=== PATIENT | male | born 1935 | race Caucasian/White ===

== ENCOUNTER 2016-12-27 15:38 | Observation (INO) | payer MEDICARE, OTHER ==
[~2016-12-27] VITALS: Ht 182.9 cm; Wt 92.1 kg
[2016-12-27 15:55] VITALS: BP 145/85; PULSE 80; RESP 15; O2SAT 96
[2016-12-27 16:35] LABS: BASOPHILS % (AUTO) 0.5 % (0-3); EOSINOPHILS % (AUTO) 3.9 % (0-5); MONOCYTES % (AUTO) 10.9 % (4-12); Mean Corpuscular Hemoglobin 29.2 pg (27.0-35.0); Mean Corpuscular Volume 86.3 fL (81-100); NEUTROPHILS % (AUTO) 60.7 % (40-74); Platelet Count 158 bil/L (150-400)
--- NOTE | 2016-12-27 16:53 | ED.REPORT ---
HPI-Neurologic Deficit Date of Service December 27, 2016 ED Provider: Franck Alfaro MD The pt is an 81 y/o male with a history of mild dementia presenting to the ED complaining of a feeling of confusion onset 1400 today. [facility] because he was feeling "fuzzy headed" and being unable to remember street names. He has never felt like this before. Per the pt's , he has been acting "odd" lately as well as there being a decrease in his ability to read. When his arrives later, she states that yesterday he had an episode where he tried to insert his credit card into the money slot which is not usual. She did say that he was normal this morning though. He is also complaining of R leg weakness for the last couple of days. Pt denies abd pain, nausea, vomiting and fever. Nursing Notes Stated Complaint: LIGHT HEADED, PAIN IN LEGS Chief Complaint: Neuro Symptoms/ Deficits Nursing Notes Reviewed: Yes Allergies: Coded Allergies: No Known Allergies (Unverified , 12/27/16) Scheduled Levothyroxine (Levothyroxine) 25 Mcg Tablet 25 MCG PO DAILY Pantoprazole DR (Pantoprazole DR) 40 Mg Tablet.dr 40 MG PO DAILY Sertraline HCl (Sertraline) 50 Mg Tablet 50 MG PO DAILY Simvastatin (Simvastatin) 40 Mg Tablet 40 MG PO HS General Time Seen by Provider: 16:40 Chief Complaint Other (confusion) Hx Obtained From: Patient Arrived By: Walk-in Sudden in Onset?: Yes Onset Occurred: 1 - 4 hours ago Symptom Duration: Since onset Severity: Current: No pain currently Associated with: Denies: Fever, Vomiting Recent Healthcare: No recent doctor visit, No recent hospitalization Similar Sx Previous: No Risk Factors TPA Administration/Criteria Stroke Thrombolytic Therapy : TPA Considered: No TPA Administered Intravenously: No, exclusion criteria (Unknown time of onset) NIH Stroke Scale Level of Consciousness: Alert and responsive (0) Ask Month & Age: Both questions right (0) 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 (0) Horizontal EO Movements: None (0) Visual Duenas: Partial hemianopsia (1) Facial Palsy: Normal symmetry (0) Right Arm Motor Drift (10s): No drift 10 sec (0) Left Arm Motor Drift (10s): No drift 10 sec (0) Right Leg Motor Drift (5s): No drift 5 sec (0) Left Leg Motor Drift (5s): No drift 5 sec (0) Limb Ataxia FNF/Heel-Storey: Ataxia in 1 limb (1) (R arm) Sensation (Arms/Legs/Face): Pinprick less sharp (1) (Face, arm, and leg ) Language Aphasia: Loss fluency ID matls (1) Dysarthria: Slurring intelligible (1) NIHSS Score: 5 Time NIHSS Performed: 16:47 Date NIHSS Performed: December 27, 2016 Past Medical History Past Medical History Renal cell carcinoma Prostate cancer Past Surgical History L knee replacement Left nephrectomy Radical prostatectomy Hernia repair Smoking History Never Smoker Social History Alcohol Use: "Social" Other Social History: Ambulatory Status Independent Review of Systems RLE weakness Constitutional: Denies: Fever Respiratory: Denies: Non-productive cough GI: Denies: Abdominal pain, Nausea, Vomiting Neurologic: Reports: Confusion Complete sys rev & neg: except as marked. Physical Exam Initial Vital Signs Vital Signs (First) Date Time Temp Pulse Resp B/P Pulse Ox O2 Delivery O2 Flow Rate FiO2 12/27/16 15:55 36.6 80 15 145/85 96 Room Air Initial VS: Reviewed ENT: Conjunctiva normal, No scleral icterus Neck: Supple, Full range of motion Abdomen / GI: Soft, Non-tender, No guarding, No rebound, No distention Extremities: Vascular intact, Neuro intact, No swelling, No tenderness Skin: Warm, Dry, No cyanosis Psychiatric: Mood/affect normal, Behavior normal, Normal thought content General/Constitutional: Awake, Alert Head / Eyes: Atraumatic, Normocephalic, PERRL Respiratory / Chest: Breath sounds NL, Breath sounds = bilat, No respiratory distress, No rales, No rhonchi, No wheezing Cardiovascular: Heart rate NL, Regular rhythm, Heart sounds NL Neurologic: Oriented X3 See NIH ENT: Atraumatic, Airway patent Neck: Atraumatic, Supple, Full range of motion Back: Atraumatic, Full range of motion Skin: Color NL, Warm, Dry Interpretation & Diagnostics Interpretation & Diagnostics: PROCEDURE: CT ANGIO HEAD AND NECK (P) IMPRESSION: 1. No acute intracranial process. 2. Moderate atrophy and chronic microvascular ischemic changes. 3. No areas of hemodynamically significant stenosis, vascular occlusion or aneurysmal dilation within the anterior circulation. 4. No areas of hemodynamically significant stenosis, vascular occlusion or aneurysmal dilation within the posterior circulation. 5. No areas of hemodynamically significant stenosis, vascular occlusion or aneurysmal dilation within the neck vasculature. Dictated by: Caity Zafar M.D. on 12/27/2016 at 21:22 Approved by: Caity Zafar M.D. on 12/27/2016 at 21:27 Lab Results Interpretation Result Diagram: 12/27/16 1627 12/27/16 1627 Test 12/27/16 16:27 White Blood Count 6.1th/mm3 (3.8-10.1) Red Blood Count 4.32mil/mm3 (4.40-5.80) Hemoglobin 12.6g/dL (13.8-17.2) Hematocrit 37.3% (41.0-50.0) Mean Corpuscular Volume 86.3fL (81-100) Mean Corpuscular Hemoglobin 29.2pg (27.0-35.0) Mean Corpuscular Hemoglobin Concent 33.8% (32.0-37.0) Red Cell Distribution Width 15.1% (12.3-15.4) Platelet Count 158bil/L (150-400) Neutrophils (%) (Auto) 60.7% (40-74) Lymphocytes (%) (Auto) 23.8% (14-46) Monocytes (%) (Auto) 10.9% (4-12) Eosinophils (%) (Auto) 3.9% (0-5) Basophils (%) (Auto) 0.5% (0-3) Prothrombin Time 11.4sec (8.1-12.5) Prothromb Time International Ratio 1.06ratio Sodium Level 139mEq/L (134-144) Potassium Level 4.0mEq/L (3.5-5.2) Chloride Level 101mEq/L (97-108) Carbon Dioxide Level 22mmol/L (18-29) Blood Urea Nitrogen 14mg/dL (8-27) Creatinine 1.26mg/dL (0.76-1.27) Estimat Glomerular Filtration Rate 58mL/min (>59) Glucose Level 96mg/dL (60-99) Calcium Level 9.5mg/dL (8.5-10.1) Total Bilirubin 0.3mg/dL (0.0-1.2) Aspartate Amino Transf (AST/SGOT) 23U/L (0-50) Alanine Aminotransferase (ALT/SGPT) 13U/L (0-44) Alkaline Phosphatase 60U/L (25-160) Troponin T < 0.010ug/L (0.0-0.011) Total Protein 7.3g/dL (6.4-8.4) Albumin 3.9g/dL (3.4-5.0) ECG Interpretation ECG Interpretation: Rate 68 Normal sinus rhythm RBBB Time: 16:27 Interpreted by: ED physician CT Head Interpretation IMPRESSION: 1. No acute intracranial process. 2. Mild atrophy and chronic microvascular ischemic changes. The above findings are discussed Dr. Franck Alfaro 12/27/16 at 5:10 PM. This study fulfills neurological imaging criteria for inclusion or exclusion of acute stroke therapies based on available published neurological guidelines. Dictated by: Caity Zafar M.D. on 12/27/2016 at 17:10 Approved by: Caity Zafar M.D. on 12/27/2016 at 17:12 Study: Head CT no contrast Interpretation / Wet Read by: Interpret - Radiologist Re-Eval/Medical Decision Source of Hx: Family Re-Evaluation/Progress : Time of Eval: 17:19 Re-Evaluation/Progress Note: Discussed radiology results. is now here for HPI. Discussed pt's need for admission. Consultation #1: Referral / Consult Name: Daniel Castro MD Consulted With: Hospitalist Call Returned at: 19:22 Note: Requested CT angio. Does not accept at this time. Consultation #2: Referral / Consult Name: Daniel Castro MD Consulted With: Hospitalist Call Returned at: 21:49 [employer]: Will see patient, Agrees with eval, Agrees with plan, Accepts admit Counseled Regarding: Diagnosis, Lab results, Need for admission Discharge & Departure Impression: Primary Impression: CVA (cerebral vascular accident) CVA mechanism: unspecified Qualified Code: I63.9 - Cerebral infarction, unspecified Disposition: ADMITTED TO HOSPITAL Discharge Condition All VS Reviewed: Yes Condition: Stable Referrals: Benjie Lange MD (PCP) Scribe Attestation Portions of this note were transcribed by Daniel Rizo and Donna Mcgrath. I, Dr. Alfaro personally performed the history, physical exam and medical decision- making; I reviewed and confirmed the accuracy of the information in the transcribed note. Signed by: Daniel Rizo and Cande Naidu, 12/27/16 and 1803. copies to: Benjie Lange MD, Kirk H MD December 27, 2016 16:53 Daniel Rizo December 27, 2016 17:10 Donna Mcgrath December 27, 2016 17:28
[2016-12-27 16:54] LABS: INR 1.06 ratio
--- NOTE | 2016-12-27 17:14 | DRSVH ---
PROCEDURE: CT BRAIN (TPA) ([id number]) INDICATIONS: CVA? TECHNIQUE: Noncontrast 4.5 mm thick angled axial sections acquired from the foramen magnum to the vertex, with c oronal reformats. COMPARISON: None. FINDINGS: Image quality: Excellent. CSF spaces: Basal cisterns are patent. No extra-axial fluid collections. The ventricles are symmet anni in size and shape. Brain: No intracranial bleeds or masses. There is cerebral volume loss for age, with resultant vent ricular and sulcal prominence. There are periventricular and deep white matter chronic small vessel ischemic changes. There is intracranial internal carotid artery atherosclerosis. Skull and face: Calvarium and visualized facial bones appear intact, without suspicious lesions. Sinuses: Visualized sinuses and mastoids are clear. IMPRESSION: 1. No acute intracranial process. 2. Mild atrophy and chronic microvascular ischemic changes. The above findings are discussed Dr. Franck Alfaro 12/27/16 at 5:10 PM. This study fulfills neurological imaging criteria for inclusion or exclusion of acute stroke therapie s based on available published neurological guidelines. Dictated by: Caity Zafar M.D. on 12/27/2016 at 17:10 Approved by: Caity Zafar M.D. on 12/27/2016 at 17:12
[2016-12-27 17:24] LABS: TROPONIN T < 0.010 ug/L (0.0-0.011)
[2016-12-27] MEDS ORDERED: LEVO25TA5 PO (17:41)
[2016-12-27] MEDS ORDERED: SERT20OR6 PO ×2 (17:41→22:57)
[2016-12-27] MEDS ORDERED: SIMV40TA5 PO (17:41)
[2016-12-27] MEDS ORDERED: PANT40TA3 PO (17:41)
[2016-12-27 17:53] VITALS: BP 148/77; PULSE 62; RESP 16; O2SAT 97
[2016-12-27] MEDS ORDERED: SERT25TA6 PO (17:57)
[2016-12-27 19:31] VITALS: BP 147/77; PULSE 70; RESP 18; O2SAT 95
[2016-12-27 20:11] LABS: APPEARANCE,URINE CLEAR (CLEAR,HAZY); COLOR,URINE YELLOW (YELLOW); OCCULT BLOOD,URINE NEGATIVE (NEGATIVE); UROBILINOGEN,URINE NORMAL (NORMAL)
--- NOTE | 2016-12-27 21:29 | DRSVH ---
PROCEDURE: CT ANGIO HEAD AND NECK (P) INDICATIONS: acute CVA TECHNIQUE: Pre-contrast 4.5 mm thick sections acquired from the foramen magnum to the vertex. After the adminis tration of intravenous contrast, 1 mm thick sections acquired from the aortic arch through the [place] of [place]. Post-contrast 4.5 mm thick sections then re-acquired from the foramen magnum to the vert ex. 3-dimensional bencdyk-pakaizzek-jkbrizhalx (MIP) and/or volume rendering reformats were acquired of the central intracranial vasculature and neck separately. For radiation dose reduction, the foll owing was used: automated exposure control, adjustment of mA and/or kV according to patient size. COMPARISON: [facility], CT, BRAIN ([facility]), 12/27/2016, 16:47. FINDINGS: Image quality: Excellent. The ventricular system and cortical sulci demonstrate atrophy, consistent for the patient's stated ag e. There are areas of hypodensity within the periventricular and subcortical white matter. There is no acute intra-or extra axial fluid collection. No acute hemorrhage, mass lesion or midline shift. Br ainstem is unremarkable. Globes are symmetrical. Sinuses are aerated. Osseous structures are intact. The posterior circulation demonstrates a vertebral artery codominance. Basilar artery and posterior c erebral arteries demonstrate no areas of hemodynamically significant stenosis, vascular occlusion or aneurysmal dilation. Posterior communicating arteries are within normal limits. The anterior circulation, including the anterior and middle cerebral arteries, as well as internal ca rotid arteries demonstrates no areas of hemodynamically significant stenosis, vascular occlusion or a neurysmal dilation. The origins of the left and right common, internal and external carotid arteries demonstrate no areas of hemodynamically significant stenosis, vascular occlusion or aneurysmal dilation. Origins of the l eft and right vertebral arteries demonstrate no areas of hemodynamically significant stenosis, vascul ar occlusion or aneurysmal dilation. Aortic arch demonstrates conventional anatomy. Limited, visualiz ed portions subclavian vasculature are unremarkable. IMPRESSION: 1. No acute intracranial process. 2. Moderate atrophy and chronic microvascular ischemic changes. 3. No areas of hemodynamically significant stenosis, vascular occlusion or aneurysmal dilation within the anterior circulation. 4. No areas of hemodynamically significant stenosis, vascular occlusion or aneurysmal dilation within the posterior circulation. 5. No areas of hemodynamically significant stenosis, vascular occlusion or aneurysmal dilation within the neck vasculature. Dictated by: Caity Zafar M.D. on 12/27/2016 at 21:22 Approved by: Caity Zafar M.D. on 12/27/2016 at 21:27
[2016-12-27] MEDS ORDERED: Alum-Mag Hydrox-Simeth 30 mL Suspension PO PRN ×2 (21:35→22:25)
[2016-12-27] MEDS ORDERED: Ondansetron 2 mg/mL 2 mL Inj IVPUSH PRN ×2 (21:35→22:25)
--- NOTE | 2016-12-27 21:45 | NUR ---
Admit Pt admitted to room 248-1. Pt ambulated well with SBA. VSS. No complaints of pain. Report given by Oanh Carlson and brought to floor via stretcher by Brigid.
[2016-12-27 21:52] VITALS: BP 150/77; PULSE 63; RESP 18; O2SAT 97
[2016-12-27] MEDS ORDERED: Labetalol 5 mg/mL 4 mL Inj IVPUSH PRN (22:25)
[2016-12-27] MEDS ORDERED: hydrALAZINE 20 mg/mL Inj IVPUSH PRN (22:25)
[2016-12-27] MEDS ORDERED: Polyethylene Glycol (PEG) 17 Gm Powder PO PRN (22:25)
[2016-12-27] MEDS ORDERED: SERT50TA9 PO (22:58)
[2016-12-28] VITALS (9 sets, daily range): BP systolic 130–159; BP diastolic 69–80; PULSE 58–79; RESP 16–20; O2SAT 95–97
--- NOTE | 2016-12-28 00:21 | PCM.HPMED ---
Subjective Date of Service December 28, 2016 Primary Provider: Admitting Physician: Daniel Castro MD Primary Care Physician: Benjie Lange MD Attending Physician: Daniel Castro MD Chief Complaint: Dizziness and confusion History of Present Illness: Jaleel Pinto is an 81 year old man with a PMH of Renal Cell carcinoma s/p R radical nephrectomy, and prostate cancer s/p radical prostatectomy who presents with a 1 day history of confusion and left sided weakness preceded by a 3-4 day history of more mild confusion per his . He states that earlier today at around 14:00 he began to feel acutely confused, unable to remember street names or directions to places he is usually quite familiar with. He does have some degree of underlying dementia, but per his and his 's report that was much worse than his baseline. He further complains of lingering left sided weakness which has improved in the past 2 hours, this is complicated by the fact that his left side is generally much weaker at baseline secondary to a left knee replacement 1 year ago which he has not fully recovered from and L>R arthritis in his hands; again however, he states that this weakness is much worse than baseline. He denies any chest pain, headache, changes in vision or sensation, or palpitations. In the ED head CT was negative for acute process and CT angio of the head and neck was unremarkable aside from chronic microvascular ischemic changes. Upon presentation to the ED his NIHSS was 5 with positive findings for partial hemianopsia on the right, Limb ataxia on heel to storey left to right(this was likely complicated by his knee replacement and lingering pain), Dulled sensation to sharp stimuli L side, mildly slurred speech, and failure to identify 1 normal object. Review of Systems: Comprehensive ROS negative except as outlined above in the HPI. Allergies Coded Allergies: No Known Allergies (Unverified , 12/27/16) Home Medications Levothyroxine (Levothyroxine) 25 Mcg Tablet 25 MCG PO DAILY Pantoprazole DR (Pantoprazole DR) 40 Mg Tablet.dr 40 MG PO DAILY Sertraline HCl (Sertraline) 50 Mg Tablet 50 MG PO DAILY Simvastatin (Simvastatin) 40 Mg Tablet 40 MG PO HS PMH Renal cell carcinoma Prostate cancer Hypothyroid Osteo-arthritis Surgical History L knee replacement Left nephrectomy Radical prostatectomy Hernia repair Family History Sister with unspecified cancer Social History Hx Alcohol Use: Yes (rare) Hx Substance Use: No Hx Tobacco Use: Yes (Very remote, quit age 21) Smoking Status: Never Smoker Exam Vital Signs Vital Sign - Last Date Time Temp Pulse Resp B/P Pulse Ox O2 Delivery O2 Flow Rate FiO2 12/27/16 21:52 36.4 63 18 150/77 97 Room Air Exam Gen: A/O x3 pleasant cooperative elderly man in NAD Neck: Supple, non tender, Full ROM HEENT: PERRL, EOMI, no scleral icterus, no conjunctival pallor, mucous membranes pink and moist CV: RRR, no murmurs rubs or gallops Resp: Lungs CTA BL, no wheezing rales or rhonchi Abd: Soft, non tender, no organomegaly Extr: No cyanosis clubbing or edema, reduced ROM and strength in L LE secondary to incompletely healed knee replacement Neuro: CN 2-12 intact, speech fluent, blunted sensation on L upper and lower extremity, 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, L to R heel to storey unable to be completed likely secondary to orthopedic issue, diminished strength in L LE, DTRs intact BL Lab and Diagnostics Labs Item Value Date Time Red Blood Count 4.32 mil/mm3 L 12/27/16 1627 Neutrophils (%) (Auto) 60.7 % 12/27/16 1627 Lymphocytes (%) (Auto) 23.8 % 12/27/16 1627 Eosinophils (%) (Auto) 3.9 % 12/27/16 1627 Monocytes (%) (Auto) 10.9 % 12/27/16 1627 Basophils (%) (Auto) 0.5 % 12/27/16 1627 Estimat Glomerular Filtration Rate 58 mL/min 12/27/16 1627 Calcium Level 9.5 mg/dL 12/27/16 1627 Total Bilirubin 0.3 mg/dL 12/27/16 1627 Aspartate Amino Transf (AST/SGOT) 23 U/L 12/27/16 1627 Alanine Aminotransferase (ALT/SGPT) 13 U/L 12/27/16 1627 Alkaline Phosphatase 60 U/L 12/27/16 1627 Troponin T < 0.010 ug/L 12/27/16 1627 Total Protein 7.3 g/dL 12/27/16 1627 Albumin 3.9 g/dL 12/27/16 1627 Prothrombin Time 11.4 sec 12/27/16 1627 Prothromb Time International Ratio 1.06 ratio 12/27/16 1627 Result Diagram: 12/27/16 1627 12/27/16 1627 X-Rays, CTs and MRIs CT BRAIN (TPA) IMPRESSION: 1. No acute intracranial process. 2. Mild atrophy and chronic microvascular ischemic changes. The above findings are discussed Dr. Franck Alfaro 12/27/16 at 5:10 PM. This study fulfills neurological imaging criteria for inclusion or exclusion of acute stroke therapies based on available published neurological guidelines. Dictated by: Caity Zafar M.D. on 12/27/2016 at 17:10 Approved by: Caity Zafar M.D. on 12/27/2016 at 17:12 CT ANGIO HEAD AND NECK (P) IMPRESSION: 1. No acute intracranial process. 2. Moderate atrophy and chronic microvascular ischemic changes. 3. No areas of hemodynamically significant stenosis, vascular occlusion or aneurysmal dilation within the anterior circulation. 4. No areas of hemodynamically significant stenosis, vascular occlusion or aneurysmal dilation within the posterior circulation. 5. No areas of hemodynamically significant stenosis, vascular occlusion or aneurysmal dilation within the neck vasculature. Dictated by: Caity Zafar M.D. on 12/27/2016 at 21:22 Approved by: Caity Zafar M.D. on 12/27/2016 at 21:27 . 12-lead ECG SR unchanged RBBB Assessment & Plan Jaleel Pinto is an 81 year old man who presents with a 1 day history of confusion and left sided weakness beyond his baseline dementia and L sided orthopedic issues. CT head and CT angio of the head and neck are unremarkable for ongoing acute process, he presented well past his TPN window, and his neurological symptoms appear to be improving with his confusion back to baseline but with some lingering left sided weakness and diminished sensation. 1. Possible Stroke with confusion and left sided weakness. POA, acute. Improving NIHSS on admission Level of Consciousness: Alert and responsive (0) Ask Month & Age: Both questions right (0) Open/Close Eyes/Hand Jig Hand: Performs both tasks (0) Horizontal EO Movements: None (0) Visual Duenas: Partial hemianopsia (1) Facial Palsy: Normal symmetry (0) Right Arm Motor Drift (10s): No drift 10 sec (0) Left Arm Motor Drift (10s): No drift 10 sec (0) Right Leg Motor Drift (5s): No drift 5 sec (0) Left Leg Motor Drift (5s): No drift 5 sec (0) Limb Ataxia FNF/Heel-Storey: Ataxia in 1 limb (1) (R arm) Sensation (Arms/Legs/Face): Pinprick less sharp (1) (Face, arm, and leg ) Language Aphasia: Loss fluency ID matls (1) Dysarthria: Slurring intelligible (1) NIHSS Score: 5 Time NIHSS Performed: 16:47 Date NIHSS Performed: December 27, 2016 -Patient has been instructed to avoid ASA and NSAIDs due to single kidney -MR stroke protocol tomorrow AM -CT head, and CT angio of the head and neck unremarkable as above -Permissive HTN SBP <220 or DBP <120 -Speech/Swallow eval tomorrow AM -PT/OT eval tomorrow AM -NPO until swallow eval -DDx includes -CVA/TIA -Hypothyroidism -Worsening dementia -Medical adverse reaction (on Zoloft) -Recurrence of malignancy 2. Hypothyroid, POA, chronic. Active -Continue home Levothyroxine 25 mcg -TSH + T4 pending 3. mild Dementia with depression, POA, chronic. Active -Continue home Sertraline -Re-orient as needed(patient oriented at time of evaluation) -Avoid Benzos and Narcotics whenever possible 4. s/p R nephrectomy, POA, chronic. Active -Avoid nephrotoxic medications -Holding ASA 5. S/P prostatectomy, POA, chronic. Active -Patient continuously dribbles urine -Be aware and utilize absorbent pads on bed to avoid bed sores. Code Status: FULL CODE Disposition: Observation, pending results of OT/PT and MR stroke protocol patient will likely be able to DC home with no needs. Pain Evaluation: Adequate Pain Control GI Prophylaxis: Proton Pump Inhibitor VTE Mechanical Devices: Intermittant Pneumatic CD Resuscitation Status: CPR: Attempt Resuscitation Attending Statement The patient was seen and examined together with Dr. Vegas on 12/27 and I agree with the history, exam and plan as outlined in the note above. Michael Vegas DO December 28, 2016 00:21 Daniel Castro MD December 28, 2016 04:19
[2016-12-28] MEDS: Heparin 5,000 Unit/mL Inj SUBQ SCH ×3 (01:02→17:37)
[2016-12-28] MEDS: Pantoprazole 40 mg ER24 Tablet PO SCH (05:49)
[2016-12-28 06:49] LABS: BASOPHILS % (AUTO) 0.7 % (0-3); EOSINOPHILS % (AUTO) 4.9 % (0-5); MONOCYTES % (AUTO) 10.4 % (4-12); Mean Corpuscular Hemoglobin 29.7 pg (27.0-35.0); NEUTROPHILS % (AUTO) 59.7 % (40-74); Platelet Count 146 bil/L (150-400)
[2016-12-28 07:09] LABS: INR 1.06 ratio
[2016-12-28 07:24] LABS: Magnesium 2.1 mg/dL (1.6-2.6); Phosphorus 3.6 mg/dL (2.5-4.9)
--- NOTE | 2016-12-28 09:21 | NUR ---
Evaluation completed. Please go to "Notes" then click on "Assessments and Notes" (bottom left corner of screen). Then select appropriate discipline tab on top of screen.
--- NOTE | 2016-12-28 10:27 | NUR ---
Evaluation completed. Please go to "Notes" then click on "Assessments and Notes" (bottom left corner of screen). Then select appropriate discipline tab on top of screen.
--- NOTE | 2016-12-28 11:07 | NUR ---
Social Work Note - Initial Assessment/Readiness for Discharge: D: See Initial Assessment. The Pt is an 81 y/o male that was admitted under observation status for CVA. The Pt's PCP is MD Benjie Lange and his insurance is [facility]. No LTC benefits reported. EMR reviewed. SW met with the Pt and the Pt's to explain role and discuss discharge planning. The Pt lives independently in a 55+ community with his in [place]. The Pt reports that his Advanced Directive paperwork is on file with the OR clinic, paperwork requested. The Pt continues to drive and does not have a HH/SNF history. The Pt does not use any DME but does have a cane and walker at home, if needed in the future. OT/PT evaluations completed, both recommending to to discharge home no needs. Pt discussed in rounds today, Pt to have an MR study completed today. The Pt denies any needs at this time, SW to follow if needs arise. A: Pt who is independent at baseline. P: The Pt is not medically stable for discharge at this time, MR study to be completed today. PT/OT evals completed, recommending discharge home. Pt likely to discharge home with family POV transportation when medically ready. The Pt denies any needs at this time, SW to follow if needs arise. TIKI Sloan Director Pharmacy Services TIKI Adame Addendum: 12/28/16 at 1113 by SALIMA RDZ SS Amended: Links added.
--- NOTE | 2016-12-28 13:36 | DRSVH ---
PROCEDURE: MRI BRAIN WITHOUT CONTRAST ([id number]) INDICATIONS: Left sided weakness.evaluate for CVA TECHNIQUE: Non-contrast axial T1 spin echo, axial T2 fast spin echo, sagittal and axial FLAIR, coronal T2 fast s pin echo, axial gradient echo, axial diffusion and ADC through the brain. COMPARISON: [facility], CT, CT ANGIO BRAIN AND NECK, 12/27/2016, 20:16. [facility], CT, BRAIN (TPA), 12/27/2016, 16:47. FINDINGS: Image quality: Excellent. CSF spaces: Ventricles appear symmetric in size and shape. Basal cisterns are patent. No extra-axi al fluid collections. Brain: No intracranial bleeds or mass effects. There is cerebral volume loss for age. There are pe riventricular and deep white matter chronic small vessel ischemic changes. Brainstem appears normal. Diffusion-weighted images show no acute ischemic insults. No chronic ischemic insults. Normal int ravascular flow voids are present. Skull and face: Calvarial bone marrow is normal in signal. Orbits are normal. Sinuses: Mild fluid is present within the right mastoid air cells. Minimal singh sinus mucosal thickeni ng is present. IMPRESSION: 1. No acute intracranial process. 2. Mild atrophy and chronic microvascular ischemic changes. 3. Mild right mastoid air cell fluid. Recommend correlation of potential mastoiditis. Dictated by: Caity Zafar M.D. on 12/28/2016 at 13:33 Approved by: Caity Zafar M.D. on 12/28/2016 at 13:35
--- NOTE | 2016-12-28 14:31 | NUR ---
Evaluation completed. Please go to "Notes" then click on "Assessments and Notes" (bottom left corner of screen). Then select appropriate discipline tab on top of screen.
--- NOTE | 2016-12-28 18:27 | PCM.PNMED ---
Subjective Date of Service December 28, 2016 Subjective Mr. Pinto is an 81-year-old man with past medical history of renal cell carcinoma status post right radical nephrectomy and prostate cancer status post radical prostatectomy who presented with a one-day history of confusion and left -sided weakness preceded by perhaps 3-4 days of mild confusion per his . On admit he had partial hemianopsia right arm weakness and some loss of sensation on the left side of his body including his face. These things are all resolved now and he is speaking clearly and feels he is back to baseline cognitive functioning. He denies any pain and weakness except in his left leg which is chronically weak after his knee replacement a year. Exam Vital Signs Vital Sign - Last Date Time Temp Pulse Resp B/P Pulse Ox O2 Delivery O2 Flow Rate FiO2 12/28/16 18:04 37.1 79 20 159/80 95 Room Air Intake and Output 12/27/16 12/27/16 12/28/16 Cumulative From/Thru 15:00 23:00 07:00 12/27/16 15:55 - 12/28/16 06:24 Intake Total 700 ml 700 ml Balance 700 ml 700 ml Intake Oral 700 ml 700 ml # Voids 2 2 # Bowel Movements 0 0 Exam Gen: A/O x3 pleasant cooperative elderly man in NAD Neck: Supple, non tender, Full ROM HEENT: EOMI, no scleral icterus, no conjunctival pallor, mucous membranes pink and moist CV: RRR, no murmurs rubs or gallops Resp: Lungs CTA BL, no wheezing rales or rhonchi Abd: Soft, non tender, no organomegaly Extr: No cyanosis clubbing or edema, reduced ROM and strength in L LE secondary to incompletely healed knee replacement Neuro: CN 2-12 intact, speech fluent, it recruiter strength intact bilaterally, strength in legs intact bilaterally, patellar reflexes intact bilaterally, sensation to light touch intact bilaterally IVs and Medications Medications Reviewed: Medications were reviewed in detail Lab and Diagnostics Result Diagram: 12/28/1664512/28/16645 X-Rays, CTs and MRIs CT BRAIN (TPA) IMPRESSION: 1. No acute intracranial process. 2. Mild atrophy and chronic microvascular ischemic changes. The above findings are discussed Dr. Franck Alfaro 12/27/16 at 5:10 PM. This study fulfills neurological imaging criteria for inclusion or exclusion of acute stroke therapies based on available published neurological guidelines. CT ANGIO HEAD AND NECK (P) IMPRESSION: 1. No acute intracranial process. 2. Moderate atrophy and chronic microvascular ischemic changes. 3. No areas of hemodynamically significant stenosis, vascular occlusion or aneurysmal dilation within the anterior circulation. 4. No areas of hemodynamically significant stenosis, vascular occlusion or aneurysmal dilation within the posterior circulation. 5. No areas of hemodynamically significant stenosis, vascular occlusion or aneurysmal dilation within the neck vasculature. MRI brain without contrast IMPRESSION: 1. No acute intracranial process. 2. Mild atrophy and chronic microvascular ischemic changes. 3. Mild right mastoid air cell fluid. Recommend correlation of potential mastoiditis. 12-lead ECG SR unchanged RBBB Assessment & Plan Jaleel Pinto is an 81 year old man who presents with a 1 day history of confusion and left sided weakness beyond his baseline dementia and L sided orthopedic issues. CT head and CT angio of the head and neck are unremarkable for ongoing acute process, he presented well past his TPN window, and his neurological symptoms have resolved overnight. 1. TIA. POA, acute. Resolved NIHSS on admission was 5 for partial hemianopsia, ataxia in the right arm, diminished pinprick sensation in face arm and leg, loss fluency, slurring intelligible speech. NIHSS is now 0 -Patient has been instructed to avoid ASA and NSAIDs due to single kidney -MR stroke protocol negative for any acute findings, positive for mild atrophy and chronic microvascular ischemic changes. -CT head, and CT angio of the head and neck unremarkable -Permissive HTN SBP <220 or DBP <120 -Speech/Swallow eval indicates no danger of aspiration -PT/OT recommend discharge home when stable 2. Hypothyroid, POA, chronic. Active -Continue home Levothyroxine 25 mcg -TSH elevated at 4.560, T4 normal at 1.06 3. mild Dementia with depression, POA, chronic. Active -Continue home Sertraline -Re-orient as needed(patient oriented at time of evaluation) -Avoid Benzos and Narcotics whenever possible 4. s/p R nephrectomy, POA, chronic. Active -Avoid nephrotoxic medications -Starting aspirin 81 mg again per recommendation of Dr. Lowe, nephrology. 5. S/P prostatectomy, POA, chronic. Active -Patient continuously dribbles urine -Be aware and utilize absorbent pads on bed to avoid bed sores. Code Status: FULL CODE Disposition: Observation, likely discharge home tomorrow Pain Evaluation: Adequate Pain Control GI Prophylaxis: Proton Pump Inhibitor VTE Prophylaxis: Sub-Q Heparin (Unfractionated) VTE Mechanical Devices: Intermittant Pneumatic CD Resuscitation Status: CPR: Attempt Resuscitation Attending Statement The patient was seen and examined together with Resident/House-staff on 12/28/16 and I agree with the history, exam and plan as outlined in the note above. Brian Schmitt DO December 28, 2016 18:27 Duran Chandler December 31, 2016 16:54 4. s/p R nephrectomy, POA, chronic. Active -Avoid nephrotoxic medications -Holding ASA 5. S/P prostatectomy, POA, chronic. Active -Patient continuously dribbles urine -Be aware and utilize absorbent pads on bed to avoid bed sores. Code Status: FULL CODE Disposition: Observation, pending results of OT/PT and MR stroke protocol patient will likely be able to DC home with no needs. GI Prophylaxis: Proton Pump Inhibitor VTE Mechanical Devices: Intermittant Pneumatic CD Resuscitation Status: CPR: Attempt Resuscitation Brian Schmitt DO December 28, 2016 18:27
--- NOTE | 2016-12-28 18:38 | NUR ---
Neuro- Patient has been alert and oriented. Moving all extremities and denies weakness or decreased sensation. Up to bathroom and ambulated in hallway with PT. Steady gait. Tele- sinus rhythm. Denies complaints.
[2016-12-29 00:54] VITALS: BP 155/85; PULSE 72; RESP 16; O2SAT 95
[2016-12-29] MEDS: Heparin 5,000 Unit/mL Inj SUBQ SCH ×2 (00:58→07:59)
[2016-12-29] MEDS: Pantoprazole 40 mg ER24 Tablet PO SCH (06:14)
[2016-12-29 06:21] VITALS: BP 150/79; PULSE 66; RESP 17; O2SAT 97
--- NOTE | 2016-12-29 06:33 | NUR ---
Neuro Pt AOX4, GUPTA. Pt denies complaints and is looking forward to going home.
[2016-12-29 07:34] LABS: Mean Corpuscular Hemoglobin 29.3 pg (27.0-35.0); Mean Corpuscular Volume 87.1 fL (81-100)
[2016-12-29 07:40] VITALS: PULSE 66
--- NOTE | 2016-12-29 08:51 | DRSVH ---
PROCEDURE: US VEINOUS LEG DUPLEX UNILATERAL, RIGHT INDICATIONS: CVA TECHNIQUE: Real-time imaging, as well as color and pulse Doppler interrogation, were performed of the lower extr emity deep veins from the inguinal ligament to the popliteal fossa. COMPARISON: None. FINDINGS: The deep veins are normally compressible, and free of intraluminal thrombus. Color and pu lse Doppler demonstrate normal phasic intraluminal flow. There is normal augmentation response to di stal compression maneuver. IMPRESSION: No deep venous thrombosis identified within the right lower extremity. Dictated by: Osito Cifuentes [facility] Interpreted: Caity Zafar MD on 12/29/2016 at 8:51 Transcribed by: DONTA on 12/29/2016 at 8:51 Approved by: Caity Zafar M.D. on 12/29/2016 at 17:54
--- NOTE | 2016-12-29 08:52 | PCM.DIMED ---
Discharge Instructions Date of Service December 29, 2016 Dates of Hospitalization December 27, 2016 at 18:41 Discharge Diagnosis Discharge Diagnosis Transient Ischemic Attack Medication Instructions Take Aspirin 81mg PO daily Test Results Laboratory Tests Test 12/29/16 07:02 White Blood Count 5.1th/mm3 (3.8-10.1) Red Blood Count 4.26mil/mm3 (4.40-5.80) Hemoglobin 12.5g/dL (13.8-17.2) Hematocrit 37.1% (41.0-50.0) Mean Corpuscular Volume 87.1fL (81-100) Mean Corpuscular Hemoglobin 29.3pg (27.0-35.0) Mean Corpuscular Hemoglobin Concent 33.7% (32.0-37.0) Red Cell Distribution Width 15.4% (12.3-15.4) Platelet Count 142bil/L (150-400) Sodium Level 141mEq/L (134-144) Potassium Level 4.2mEq/L (3.5-5.2) Chloride Level 105mEq/L (97-108) Carbon Dioxide Level 23mmol/L (18-29) Blood Urea Nitrogen 14mg/dL (8-27) Creatinine 1.25mg/dL (0.76-1.27) Estimat Glomerular Filtration Rate 59mL/min (>59) Glucose Level 115mg/dL (60-99) Calcium Level 9.2mg/dL (8.5-10.1) Diet Heart Healthy Activity No restrictions Call your provider Fever or Chills, Shortness of breath, Bleeding, Chest pain, Vomitting, Excessive diarrhea, Weakness (unilateral), Other (slurred speech, difficulty swallowing) Patient Instructions Please follow up with your primary care doctor next week. You can and should take Aspirin 81mg by mouth daily for stroke prevention. The safety of this in regards to your single kidney was confirmed by Dr Lowe, Staff [employer]. He does recommend that you do not take any NSAIDs like Ibuprofen, Alleve, Motrin, etc and avoid other nephrotoxic medications. Follow-up plan Secondary stroke prevention with Aspirin 81mg daily. Follow-up Provider: [facility] Follow-up with PCP in: 1 week Brian Schmitt DO December 29, 2016 08:52 Brian Schmitt DO December 29, 2016 08:52
--- NOTE | 2016-12-29 08:54 | DRSVH ---
PROCEDURE: US BILATERAL DUPLEX DOPPLER IMAGING OF THE CAROTIDS ([id number]) INDICATIONS: CVA TECHNIQUE: Color and pulse Doppler interrogation was performed of both carotid systems, with image documentation and velocity measurements. COMPARISON: None. FINDINGS: All stenosis calculations are based on NASCET criteria. Right side: Brachial blood pressure: Not obtained. Common Carotid Artery(Distal) PSV: 70 cm/s Internal Carotid Artery PSV- Proximal: 75.50 cm/s Mid-lon.50 cm/s Distal: 64 cm/s EDV - Proximal: 13.50 cm/s Mid-lon.50 cm/s Distal: 15 cm/s External Carotid Artery(Proximal) PSV: 92 cm/s ICA/CCA PSV ratio: 1.0 Kelly scale imaging description: Minimal plaque. Percent internal carotid artery stenosis: Less than 50%. Vertebral artery: Flow direction is antegrade. Left side: Brachial blood pressure: Not obtained. Common Carotid Artery(Distal) PSV: 87.30 cm/s Internal Carotid Artery PSV - Mid-lon.60 cm/s Distal: 62.30 cm/s EDV - Mid-lon.40 cm/s Distal: 14.10 cm/s External Carotid Artery(Proximal) PSV: 115.30 cm/s ICA/CCA PSV ratio: 0.8 Kelly scale imaging description: Minimal plaque. Percent internal carotid artery stenosis: Less than 50%. Vertebral artery: Flow direction is antegrade. IMPRESSION: Less than 50% bilateral internal carotid artery stenosis. Dictated by: Osito Cifuentes [facility] Interpreted: Caity Zafar MD on 12/29/2016 at 8:52 Transcribed by: DONTA on 12/29/2016 at 8:54 Approved by: Caity Zafar M.D. on 12/29/2016 at 17:54
[2016-12-29 09:35] VITALS: BP 127/75; PULSE 75; RESP 14; O2SAT 94
[2016-12-29] MEDS ORDERED: ASPI81TA3 PO (09:42)
--- NOTE | 2016-12-29 09:51 | PCM.DC.MED ---
Discharge Summary Date of Service December 29, 2016 Dates of Hospitalization Date of Hospital Admission December 27, 2016 at 18:41 Date of Discharge: December 29, 2016 Providers: Admitting Physician: Daniel Castro MD Primary Care Physician: Benjie Lange MD Attending Physician: Daniel Castro MD Diagnosis at Time of Discharge Diagnosis at Time of Discharge Transient Ischemic Attack Procedures XRay, CTs & MRIs CT BRAIN (TPA) IMPRESSION: 1. No acute intracranial process. 2. Mild atrophy and chronic microvascular ischemic changes. The above findings are discussed Dr. Franck Alfaro 12/27/16 at 5:10 PM. This study fulfills neurological imaging criteria for inclusion or exclusion of acute stroke therapies based on available published neurological guidelines. CT ANGIO HEAD AND NECK (P) IMPRESSION: 1. No acute intracranial process. 2. Moderate atrophy and chronic microvascular ischemic changes. 3. No areas of hemodynamically significant stenosis, vascular occlusion or aneurysmal dilation within the anterior circulation. 4. No areas of hemodynamically significant stenosis, vascular occlusion or aneurysmal dilation within the posterior circulation. 5. No areas of hemodynamically significant stenosis, vascular occlusion or aneurysmal dilation within the neck vasculature. MRI brain without contrast IMPRESSION: 1. No acute intracranial process. 2. Mild atrophy and chronic microvascular ischemic changes. 3. Mild right mastoid air cell fluid. Recommend correlation of potential mastoiditis. ECG 12 Lead SR unchanged RBBB Cardiac Echo Impression Interpretation Summary The left ventricle is normal in size. The ejection fraction is estimated to be 60-65%. There is no LV thrombus. Borderline right ventricular enlargement. The right ventricular systolic function is normal. There is mild mitral regurgitation. Injection of contrast documented no interatrial shunt. Brief History Jaleel Pinto is an 81 year old man with a PMH of Renal Cell carcinoma s/p R radical nephrectomy, and prostate cancer s/p radical prostatectomy who presents with a 1 day history of confusion and left sided weakness preceded by a 3-4 day history of more mild confusion per his . He states that on 12/27/16 at around 14:00 he began to feel acutely confused, unable to remember street names or directions to places he is usually quite familiar with. He does have some degree of underlying dementia, but per his and his 's report that was much worse than his baseline. 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 He denied any chest pain, headache, changes in vision or sensation, or palpitations. In the ED head CT was negative for acute process and CT angio of the head and neck was unremarkable aside from chronic microvascular ischemic changes. Upon presentation to the ED his NIHSS was 5 with positive findings for partial hemianopsia on the right, Limb ataxia on heel to coronado left to right(this was likely complicated by his knee replacement and lingering pain), Dulled sensation to sharp stimuli L side, mildly slurred speech, and failure to identify 1 normal object. Hospital Course Jaleel Pinto is an 81 year old man who presents with a 1 day history of confusion and left sided weakness beyond his baseline dementia and L sided orthopedic issues. CT head and CT angio of the head and neck are unremarkable for ongoing acute process, he presented well past his TPN window, and his neurological symptoms resolved overnight. 1. TIA. POA, acute. Resolved NIHSS on admission was 5 for partial hemianopsia, ataxia in the right arm, diminished pinprick sensation in face arm and leg, loss fluency, slurring intelligible speech. -NIHSS is now 0 -Patient has been instructed to avoid ASA and NSAIDs due to single kidney -MR stroke protocol negative for any acute findings, positive for mild atrophy and chronic microvascular ischemic changes. -CT head, and CT angio of the head and neck unremarkable -Permissive HTN SBP <220 or DBP <120 -Speech/Swallow eval indicates no danger of aspiration -PT/OT recommend discharge home when stable -ASA 81mg daily 2. Hypothyroid, POA, chronic. -Continue home Levothyroxine 25 mcg -TSH elevated at 4.560, T4 normal at 1.06 3. mild Dementia with depression, POA, chronic. Active -Continue home Sertraline -Re-orient as needed(patient oriented at time of evaluation) -Avoid Benzos and Narcotics whenever possible 4. s/p R nephrectomy, POA, chronic. Active -Avoid nephrotoxic medications -Starting aspirin 81 mg again per recommendation of Dr. Lowe, nephrology. 5. S/P prostatectomy, POA, chronic. Active -Patient continuously dribbles urine -Be aware and utilize absorbent pads on bed to avoid bed sores. Code Status: FULL CODE Disposition: Observation, likely discharge home tomorrow Exam Vital Signs (Last) Date Time Temp Pulse Resp B/P Pulse Ox O2 Delivery O2 Flow Rate FiO2 12/29/16 09:35 36.7 75 14 127/75 94 Room Air Exam Gen: A/O x3 pleasant cooperative elderly man in NAD Neck: Supple, non tender, Full ROM HEENT: EOMI, no scleral icterus, no conjunctival pallor, mucous membranes pink and moist CV: RRR, no murmurs rubs or gallops Resp: Lungs CTA BL, no wheezing rales or rhonchi Abd: Soft, non tender, no organomegaly Extr: No cyanosis clubbing or edema, reduced ROM and strength in L LE secondary to incompletely healed knee replacement Neuro: CN 2-12 intact, speech fluent, coiled tubing supervisor strength intact bilaterally, strength in legs intact bilaterally, patellar reflexes intact bilaterally, sensation to light touch intact bilaterally Test 12/27/16 16:27 12/27/16 19:52 12/28/16 06:46 12/29/16 07:02 Troponin T < 0.010ug/L (0.0-0.011) Urine Color Yellow (YELLOW) Urine Appearance Clear (CLEAR,HAZY) Urine pH 6.0 (5.0-8.0) Urine Specific [place] 1.010 (1.003-1.035) Urine Protein Negativemg/dL (NEG,TRACE) Urine Glucose (UA) Negativemg/dL (NEGATIVE) Urine Ketones Negativemg/dL (NEGATIVE) Urine Occult Blood Negative (NEGATIVE) Urine Nitrite Negative (NEGATIVE) Urine Bilirubin Negative (NEGATIVE) Urine Urobilinogen Normalmg/dL (NORMAL) Urine Leukocyte Esterase Negative (NEGATIVE) Urine RBC 0-2/hpf (0-2) Urine WBC 0-5/hpf (0-5) Urine Epithelial Cells None/hpf (NONE-MOD) Urine Crystals None seen (NONE SEEN) Urine Bacteria Few/hpf (NONE-FEW) Urine Hyaline Casts None/lpf (NONE) Urine Granular Casts None seen (NONE SEEN) Urine Waxy Casts None seen (NONE SEEN) Urine Red Blood Cell Casts None seen (NONE SEEN) Urine White Blood Cell Casts None seen (NONE SEEN) Urine Mucus None seen (None Seen) Urine Trichomonas None seen (NONE SEEN) Urine Yeast None (NONE SEEN) Urinalysis Comment None Urine Culture Reflexed Not indicated Neutrophils (%) (Auto) 59.7% (40-74) Lymphocytes (%) (Auto) 24.1% (14-46) Monocytes (%) (Auto) 10.4% (4-12) Eosinophils (%) (Auto) 4.9% (0-5) Basophils (%) (Auto) 0.7% (0-3) Prothrombin Time 11.4sec (8.1-12.5) Prothromb Time International Ratio 1.06ratio Hemoglobin A1c 5.9% (4.8-5.6) Phosphorus Level 3.6mg/dL (2.5-4.9) Magnesium Level 2.1mg/dL (1.6-2.6) Total Bilirubin 0.3mg/dL (0.0-1.2) Aspartate Amino Transf (AST/SGOT) 22U/L (0-50) Alanine Aminotransferase (ALT/SGPT) 13U/L (0-44) Alkaline Phosphatase 57U/L (25-160) Total Protein 6.4g/dL (6.4-8.4) Albumin 3.9g/dL (3.4-5.0) Thyroid Stimulating Hormone (TSH) 4.560uIU/mL (0.450-4.500) Free Thyroxine 1.06ng/dL (0.82-1.77) White Blood Count 5.1th/mm3 (3.8-10.1) Red Blood Count 4.26mil/mm3 (4.40-5.80) Hemoglobin 12.5g/dL (13.8-17.2) Hematocrit 37.1% (41.0-50.0) Mean Corpuscular Volume 87.1fL (81-100) Mean Corpuscular Hemoglobin 29.3pg (27.0-35.0) Mean Corpuscular Hemoglobin Concent 33.7% (32.0-37.0) Red Cell Distribution Width 15.4% (12.3-15.4) Platelet Count 142bil/L (150-400) Sodium Level 141mEq/L (134-144) Potassium Level 4.2mEq/L (3.5-5.2) Chloride Level 105mEq/L (97-108) Carbon Dioxide Level 23mmol/L (18-29) Blood Urea Nitrogen 14mg/dL (8-27) Creatinine 1.25mg/dL (0.76-1.27) Estimat Glomerular Filtration Rate 59mL/min (>59) Glucose Level 115mg/dL (60-99) Calcium Level 9.2mg/dL (8.5-10.1) Discharge Medications Discharge Medications Aspirin Chew (Aspirin Chew) 81 Mg Chew 81 MG PO DAILY Prescribed by: BRIAN SCHMITT DO Levothyroxine (Levothyroxine) 25 Mcg Tablet 25 MCG PO DAILY (Reported) Pantoprazole DR (Pantoprazole DR) 40 Mg Tablet.dr 40 MG PO DAILY (Reported) Sertraline HCl (Sertraline) 50 Mg Tablet 50 MG PO DAILY (Reported) Simvastatin (Simvastatin) 40 Mg Tablet 40 MG PO HS (Reported) Additional med instructions Take Aspirin 81mg PO daily Followup Plan Disposition: Home Follow-up plan Secondary stroke prevention with Aspirin 81mg daily. Discharge Diet: Heart Healthy Discharge Activity: No restrictions Patient Instructions Please follow up with your primary care doctor next week. You can and should take Aspirin 81mg by mouth daily for stroke prevention. The safety of this in regards to your single kidney was confirmed by Dr Lowe, Staff Final [employer]. He does recommend that you do not take any NSAIDs like Ibuprofen, Alleve, Motrin, etc and avoid other nephrotoxic medications. Follow-up Provider: Benjie Lange MD Follow-up with PCP in: 1 week Time spent 30 min Attending Statement The patient was seen and examined together with Resident/House-staff on 12/29/16 and I agree with the history, exam and plan as outlined in the note above. copies to: [facility] Brian Schmitt DO December 29, 2016 09:51 Duran Chandler December 31, 2016 16:59
--- NOTE | 2016-12-29 10:32 | DRSVH ---
[facility] [address] [place] [address] Echocardiogram Report Name: CHASE GUTIERREZ WStudy Date : 12/29/2016 Height: 72 in Hospital Exam Location: [facility] Weight: 203 lb Gender: Male BSA: 2.1 m2 : 1935 Age: 81 yrs BP: 150/79 mmHg Reason For Study: CVA Ordering Physician: HOSPITALIST NOAHerformed By: Sven Tolbert Referring Physician: Amie MORA Interpretation Summary The left ventricle is normal in size. The ejection fraction is estimated to be 60-65%. There is no LV thrombus. Borderline right ventricular enlargement. The right ventricular systolic function is normal. There is mild mitral regurgitation. Injection of contrast documented no interatrial shunt. Procedure: A two-dimensional transthoracic echocardiogram with color flow and Doppler was performed. The study quality was technically adequate. There is no prior echocardiogram noted for this patient. A saline contrast injection was performed to assess for cardiac shunting. The patient was in normal sinus rhythm during the exam. Left Ventricle: The left ventricle is normal in size. Left ventricular wall thickness is borderline increased. There is no thrombus. The ejection fraction is estimated to be 60-65%. There are no focal wall motion abnormalities. Spectral Doppler of the mitral valve is reversed, with an E/A wave ratio < 1.0. Right Ventricle: Borderline right ventricular enlargement. The right ventricular systolic function is normal. Atria: Both atria are normal in size. The thickening of interatrial septum suggests lipomatous hypertrophy. Injection of contrast documented no interatrial shunt. Mitral Valve: The mitral valve leaflets are slightly calcified. There is mild mitral annular calcification. There is mild mitral regurgitation. Aortic Valve: The aortic valve is trileaflet. The aortic valve opens well. The aortic valve is slightly calcified. There is no aortic valve stenosis. No aortic regurgitation is present. Tricuspid Valve: The tricuspid valve is normal in structure and function. There is trace tricuspid regurgitation. The right ventricular systolic pressure is estimated at 34 mmHg assuming a right atrial pressure of 3 mm Hg. Pulmonic Valve: The pulmonic valve is normal in structure and function. There is no pulmonic valvular regurgitation. Great Vessels: The aortic root is normal size. The dimensions of the ascending aorta are normal. The pulmonary artery is normal size. The IVC is of normal diameter and collapses greater than 50% with a sniff. This suggests a low right atrial pressure of 3 mm Hg. Pericardium/ Pleura There is no pericardial effusion. There is no pleural effusion. MMode/2D Measurements & Calculations LVIDd: 4.8 cm LA dimension: 3.9 cm RA long axis Ao root diam LVIDs: 3.0 cm FS: 36.3 % LA A2 area: 21.3 cm RA area Aortic Jxn EPSS: 0.34 cm LA A4 area: 19.3 cm IVSd: 1.1 cm LA length (vol): 5.4 cm : 18.8 cm asc Aorta LVPWd: 0.96 cm LA vol: 65.1 ml RA vol: 59.9 mlDiam: 3.3 cm LA vol index RA : 28.0 mm2 IVC diam: 1.0 cm LV velez. diameter/BSA LV sys. diameter/BSA RVD1 (basal) RVD2 (mid) (cm/m^2): 2.2 (cm/m^2): 1.4 : 3.8 cm Doppler Measurements & Calculations MV E max tavon MV E/A: 0.68 TR max tavon MV dec time : 54.4 cm/sec Med Peak E' Tavon : 278.5 cm/sec : 0.27 sec MV A max tavon TR max PG : 79.7 cm/sec E/E' med: 10.8 : 31.0 mmHg Lat Peak E' Tavon PA V2 max : 89.6 cm/sec E/E' lat: 8.5 PA mean PG E/e' average: 9.6 Pulm A Revs Dur: 0.09 secPA Accel Time MV A dur: 0.13 sec PA V2 mean Pulm A Revs Dur - MV A : 66.0 cm/sec Dur: -0.04 msec PA pr(Accel) : 26.6 mmHg Reading Physician:ALEX
--- NOTE | 2016-12-29 10:56 | NUR ---
Social Work-discharge: data:EMR reviewed. pt is on day 2 of hospitalization for CVA per H&P. Pt is medically stable for discharge home today. PT, OT, and ST have cleared pt for home no needs. SW confirmed plan of home with , no needs. Pt's family to provide transport home today. No discharge needs identified. All updated and agreeable to plan. Assessment:Pt who is independent at baseline. Plan:Pt to discharge home today via POV. No discharge needs identified. All updated and agreeable to plan. TIKI Adame
[2016-12-29 11:11] VITALS: PULSE 64
--- NOTE | 2016-12-29 12:00 | NUR ---
Neuro Status Patient A/O X 4. Denies any weakness/numbness/tingling. Speech appropriate, not delayed.
--- NOTE | 2016-12-29 12:40 | NUR ---
Discharge Patient discharged home with , ambulated out. Telemetry and IV sites D/C'd. ASA Prescription given to patient along with all discharge instructions. Patient and verbalized understanding, denied any further questions. No s/s of distress on discharge.
== END 2016-12-29 12:30 | disposition home or self-care (01) ==
LOC: SED 16:41 → MOC 18:41
PROVIDERS: ADMIT Hospitalist; ATTEND Hospitalist
DX: R41.0 Disorientation, unspecified (principal); R53.1 Weakness; G45.9 Transient cerebral ischemic attack, unspecified; E03.9 Hypothyroidism, unspecified; F03.90 Unspecified dementia, unspecified severity, without behavioral disturbance, psychotic disturbance, mood disturbance, and anxiety; F32.9 Major depressive disorder, single episode, unspecified; Z90.5 Acquired absence of kidney; Z90.79 Acquired absence of other genital organ(s); Z79.82 Long term (current) use of aspirin; M19.90 Unspecified osteoarthritis, unspecified site; Z87.891 Personal history of nicotine dependence
CPT/HCPCS: 36415; 70450; 70496; 70498; 70551; 80048; 80053; 81000; 82948; 83036; 83735; 84100; 84439; 84443; 84484; 85025; 85027; 85610; 92610; 93005; 93880; 93971; 97161; 97165; 99285; C8929; G0378; J1644; Q9967